=== PATIENT | female | born 1960 | race Two or more races ===

== ENCOUNTER 2023-07-19 13:04 | Emergency (ER) | payer OTHER ==
[~2023-07-19] VITALS: Ht 167.6 cm; Wt 81.6 kg
[~2023-07-19 13:04] MED LIST: BALANCED B-CO400 MCG; HYDROCHLOROTH12.5 M1; MILLIPRED5 MG; SOLU-MEDRO40 MG/1 ML; TOPROL XL25 M1
== END 2023-07-19 21:05 | disposition home or self-care (01) ==
LOC: ER 13:05
DX: S30.0XXA Contusion of lower back and pelvis, initial encounter (principal); W18.39XA Other fall on same level, initial encounter; Y93.89 Activity, other specified; Y92.018 Other place in single-family (private) house as the place of occurrence of the external cause; Y99.9 Unspecified external cause status; I10 Essential (primary) hypertension